=== PATIENT | female | born 1935 | race Caucasian/White ===

== ENCOUNTER 2019-07-11 21:17 | Observation (INO) ==
[2019-07-11 22:24] LABS: Basophils % 0.4 % (0.1-2.0); Eosinophils # 0.1 K/mm3 (0.0-0.4); Eosinophils % 0.6 % (0.1-12.0); Hematocrit 37.1 % (37.0-47.0); Hemoglobin 12.1 g/dL (12.2-16.2); Lymphocytes # 1.5 K/mm3 (0.7-4.5); Lymphocytes % 17.5 % (10-50); Mean Corpuscular HGB Conc 32.6 g/dL (31.8-35.4); Mean Corpuscular Volume 91.9 fl (81-99); Mean Platelet Volume 8.8 fl (7.4-10.4); Monocytes # 0.4 K/mm3 (0.1-1.0); Monocytes % 4.4 % (1.7-9.3); Neutrophils # 6.7 K/mm3 (1.8-7.8); Neutrophils % 77.1 % (37.0-80.0); Platelet Count 168 K/mm3 (142-424); Red Blood Count 4.04 M/mm3 (4.20-5.40); Red Cell Distribution Width 13.4 % (11.5-17.5); White Blood Count 8.7 K/mm3 (4.8-10.8)
[2019-07-11 22:33] LABS: Alanine Aminotransferase 21 U/L (12-78); Albumin Level 2.9 gm/dL (3.4-5.0); Albumin/Globulin Ratio 0.7 (1.1-1.8); Alkaline Phosphatase 98 U/L (46-116); Anion Gap 16.7 mEq/L (5-15); Aspartate Amino Transferase 18 U/L (15-37); Bilirubin,Total 0.6 mg/dL (0.2-1.0); Blood Urea Nitrogen 16 mg/dL (7-18); C-Reactive Protein 3.7 mg/dL (0.0-0.9); Calcium 8.5 mg/dL (8.5-10.1); Carbon Dioxide 24 mmol/L (21.0-32.0); Chloride 102 mmol/L (98-107); Globulin 3.9 gm/dl (1.3-3.2); Glucose 245 mg/dL (74-106); Sodium 139 mmol/L (136-145); Total Protein,Serum 6.8 gm/dL (6.4-8.2)
[2019-07-11 22:49] LABS: Erythrocyte Sedimentation Rate 97 mm/hr (0-30)
--- NOTE | 2019-07-11 23:11 | Emergency Department Note ---
ED Disposition Clinical Impression: Obesity (BMI 30.0-34.9), Cellulitis of both lower extremities UTI (urinary tract infection) Qualifiers: Urinary tract infection type: site unspecified Hematuria presence: without hematuria Qualified Code(s): N39.0 - Urinary tract infection, site not specified Knee pain, right Qualifiers: Chronicity: acute Qualified Code(s): M25.561 - Pain in right knee Disposition: Admitted as Observation Condition on Discharge: Good - Critical Care Critical Care Time: No Attestation: On 07/11/19, the high probability of a clinically significant, sudden or life threatening deterioration of the following system(s) required my full and direct attention, intervention and personal management. The time I documented below is in addition to time spent performing reported procedures but includes the following listed in this critical care notation. Medical Decision Making - Medical Records Medical records reviewed: Yes: I reviewed the patient's medical records. - [place] Inquiry Pt receiving controlled substance: No Vital Signs: 07/11/19 21:44 Temperature 97.7 F Temperature Source Oral Pulse Rate [Left Radial] 78 Respiratory Rate 14 Blood Pressure [Right Arm] 137/67 Blood Pressure Mean [Right Arm] 90 Blood Pressure Source [Right Arm] Automatic Cuff Blood Pressure Position [Right Arm] Sitting 02 Sat by Pulse Oximetry 95 Oxygen Delivery Method Room Air - Lab Data Lab results reviewed: Yes: I reviewed the patient's lab results. Lab Results 07/11/19 21:45: WBC 8.7, RBC 4.04 L, Hgb 12.1 L, Hct 37.1, MCV 91.9, MCH 30.0, MCHC 32.6, RDW 13.4, Plt Count 168, MPV 8.8, Neut % (Auto) 77.1, Lymph % (Auto) 17.5, [place] % (Auto) 4.4, Eos % (Auto) 0.6, Baso % (Auto) 0.4, Neut # (Auto) 6.7, Lymph # (Auto) 1.5, [place] # (Auto) 0.4, Eos # (Auto) 0.1, Baso # (Auto) 0.0, ESR 97 H 07/11/19 21:45: Sodium 139, Potassium 3.7, Chloride 102, Carbon Dioxide 24, Anion Gap 16.7 H, BUN 16, Creatinine 1.28 H, Estimated Creat Clear 42, Estimated GFR 40 L, Est GFR ( Amer) 48 L, Glucose 245 H, Calcium 8.5, Total Bilirubin 0.6, AST 18, ALT 21, Alkaline Phosphatase 98, Troponin I < 0.02, C-Reactive Protein 3.7 H, Total Protein 6.8, Albumin 2.9 L, Globulin 3.9 H, Albumin/Globulin Ratio 0.7 L 07/11/19 23:15: Lactate 2.7 H 07/12/19 00:22: Urine Color Yellow, Urine Appearance Cloudy, Urine pH 5.5, Ur Specific [place] 1.020, Urine Protein Negative, Urine Glucose (UA) 1+, Urine Ketones Negative, Urine Blood Negative, Urine Nitrate Positive, Urine Bilirubin Negative, Urine Urobilinogen 0.2, Ur Leukocyte Esterase 2+ A Result diagrams: 07/11/19 21:45 07/11/19 21:45 Orders (Tests/Meds): ED MEDICATIONS Generic Name Dose Route Start Last Admin Trade Name Freq PRN Reason Stop Dose Admin Ertapenem 1 gm/ Sodium 50 mls @ 100 mls/hr 07/12/19 01:15 07/12/19 01:11 Chloride IV 07/26/19 01:14 100 mls/hr Q24H TUAN Administration Protocol ORDERS Category Date Time Status XR chest AP Stat Exams 07/11/19 21:57 Taken Troponin I Q3H Lab 07/12/19 00:35 Received Troponin I Q3H Lab 07/12/19 04:00 Ordered Urinalysis and Microscopic Stat Lab 07/12/19 00:22 Results Blood Culture Stat Micro 07/11/19 23:15 Received Urine Culture Stat Micro 07/12/19 00:22 Received - Radiology Data #1 Image(s): Chest Image Reviewed: Yes I reviewed the patient's radiology image Preliminary Findings: Normal/NAD Weakness HPI - General Chief complaint: Weakness Stated complaint: R Knee Pain,weakness Time Seen by Provider: 07/11/19 23:09 Mode of Arrival: Wheelchair Source of Information: Patient, Parent(s), Medical Record Limitations: Physical Limitations Description of Symptoms (Recalled from ER Triage Doc. by RN): pt stated she has felt generalized weakness all day today and has felt "weak in the knees" like they might give out. pt also complains of increased nausea and acid reflux today. pt denies vomiting/diarrhea. - History of Present Illness HPI Narrative: pt with weakness and dec ability to ambulate sec to weakness and rt knee - pt with nausea but no chest pain MD Complaint: generalized weakness Onset (ago): day(s) Location: generalized Migration: none Severity: moderate Associated symptoms: denies other symptoms - Related Data Home Medications Medication Instructions Recorded Confirmed Aspirin [Aspir 81] 81 mg PO POSTTR 07/12/19 07/12/19 Metformin HCl [Metformin HCl ER] 500 mg PO DAILY 07/12/19 07/12/19 Metoprolol/Hydrochlorothiazide 1 tab PO DAILY 07/12/19 07/12/19 [Metoprolol-Hctz 100-25 mg Tab] Raloxifene HCl 60 mg PO DAILY 07/12/19 07/12/19 Ramipril [Altace 2.5mg capsule] 2.5 mg PO DAILY 07/12/19 07/12/19 Saxagliptin HCl [Onglyza] 5 mg PO DAILY 07/12/19 07/12/19 Allergies Allergy/AdvReac Type Severity Reaction Status Date / Time No Known Drug Intolerances Allergy Unknown NA Verified 07/12/19 01:11 [facility] History - Hepatitis A Screen Drug use history?: No High risk sexual behaviors?: No History of sexually transmitted infection?: No Currently employed?: No Childcare worker?: No Do you have indoor plumbing?: Yes Do you have electricity?: Yes Attestation statement:: This patient has been screened for Hepatitis A risk factors. I have reviewed the patient's past medical history: Yes Medical History: Reports:: Diabetes Mellitus Type 2 - Social History Alcohol Intake: never Occupational Status: disabled ROS Obtained: Yes All systems reviewed & no additional complaints - Constitutional Constitutional: Reports as per HPI, Denies fever(s), Reports weakness - Eyes Eyes: Denies change in vision - ENT Ears, Nose, Mouth, and Throat: Denies sore throat - Cardiovascular Cardiovascular: Denies chest pain, Denies dyspnea - Respiratory Respiratory: No cough - Gastrointestinal Gastrointestingal: Denies: abdominal pain, vomiting - Genitourinary Female Genitourinary: Denies hematuria - Musculoskeletal Musculoskeletal: Reports as per HPI, Reports joint pain, Reports joint swelling - Integumentary/Breasts Skin/Breast: Denies rash - Neurologic Neurologic: Denies headache(s), Denies seizure-like activity Physical Exam - General General appearance: alert, obese - Head Head exam: normocephalic - Eye Eye exam: Present: PERRL, EOMI. Absent: scleral icterus - ENT ENT exam: Present: mucous membranes dry - Neck Neck exam: Present: trachea midline - Respiratory Respiratory exam: Present: normal lung sounds bilaterally. Absent: respiratory distress - Cardiovascular Cardiovascular exam: Present: regular rate, systolic murmur, +S4 - Abdominal Exam Abdominal exam: Present: soft - Extremities Exam Extremities exam: Present: joint swelling - Expanded Lower Extremity Exam Right Knee exam: Present: tenderness, swelling. Absent: full ROM, erythema - Neurological Exam Neurological exam: Present: alert, CN II-XII intact. Absent: motor sensory deficit - Psychiatric Psychiatric exam: Present: normal affect - Skin Skin exam: Present: other (lower ext cellulitis bilat )
[2019-07-12 00:45] LABS: Microscopic, Urine URINE MICROSCOPIC (MICROSCOPIC)
[2019-07-12 00:53] LABS: Appearance,Urine CLOUDY (Clear); Bilirubin,Urine Negative (Negative); Blood, Urine Negative (Negative); Color,Urine YELLOW (Yellow); Glucose,Urine (UA) 1+ (Negative); Ketones,Urine Negative (Negative); Leukocyte Esterase,Urine 2+ (Negative); PH,Urine 5.5 (5.0-8.5); Protein,Urine Negative (Negative); Urobilinogen,Urine 0.2 EU/dl (0.2)
[2019-07-12 01:16] LABS: Bacteria,Urine 2+ /lpf; WBC,Urine 50-100 #/hpf (0-3)
[2019-07-12 03:46] LABS: Basophils % 0.4 % (0.1-2.0); Eosinophils # 0.2 K/mm3 (0.0-0.4); Eosinophils % 3.5 % (0.1-12.0); Hematocrit 33.7 % (37.0-47.0); Hemoglobin 11.1 g/dL (12.2-16.2); Lymphocytes # 1.9 K/mm3 (0.7-4.5); Lymphocytes % 29.8 % (10-50); Mean Corpuscular HGB Conc 32.8 g/dL (31.8-35.4); Mean Platelet Volume 9.2 fl (7.4-10.4); Monocytes # 0.4 K/mm3 (0.1-1.0); Monocytes % 5.8 % (1.7-9.3); Neutrophils # 3.9 K/mm3 (1.8-7.8); Neutrophils % 60.5 % (37.0-80.0); Platelet Count 151 K/mm3 (142-424); Red Cell Distribution Width 13.5 % (11.5-17.5); White Blood Count 6.4 K/mm3 (4.8-10.8)
[2019-07-12 04:01] LABS: Anion Gap 15.2 mEq/L (5-15); Blood Urea Nitrogen 14 mg/dL (7-18); Calcium 8.1 mg/dL (8.5-10.1); Carbon Dioxide 23 mmol/L (21.0-32.0); Chloride 106 mmol/L (98-107); Sodium 141 mmol/L (136-145)
[2019-07-12 04:04] LABS: Glucose 143 mg/dL (74-106)
--- NOTE | 2019-07-12 07:30 | Pharmacy Consult Notes ---
[facility] Pharmacy VTE Monitoring - Patient Demographics Admission date: 07/11/19 Report Date: 07/12/19 Time: 07:29 Allergies/Adverse Reactions: Patient Allergies No Known Drug Intolerances Allergy (Unknown, Verified 07/12/19 01:11) NA Height: 1.63 m Weight: 85.02 kg Patient Problems: Current Active Problems UTI (urinary tract infection) (Acute) Obesity (BMI 30.0-34.9) (Acute) Knee pain, right (Acute) Cellulitis of both lower extremities (Acute) - VTE Risk Labs: VTE Related Lab Results Hgb 11.1 g/dL (12.2-16.2) L 07/12/19 03:35 Hct 33.7 % (37.0-47.0) L 07/12/19 03:35 Plt Count 151 K/mm3 (142-424) 07/12/19 03:35 BUN 14 mg/dL (7-18) 07/12/19 03:35 Creatinine 1.09 mg/dL (0.55-1.02) H 07/12/19 03:35 Estimated Creat Clear 50 mL/min (50-200) 07/12/19 03:35 VTE Score: 3 VTE Risk Level: Low Risk - Prophylaxis VTE Prophylaxis Ordered?: Yes Types of VTE Prophylaxis: TEDS Knee High Location of Applied Device: Bilateral Lower Extremeties - VTE Diagnosis Confirmed Treatment or plan recommended: Continue Current Treatment
--- NOTE | 2019-07-12 09:35 | History & Physical Report ---
*Admission Date: 07/11/19 *Chief complaint: weakness *History of present illness: this wf presented with family to [facility] ed with hx of progressive weakness over the last 2-3 days which affected her adl and iadl- she normally has no diff with ambulation but now too weak and also reports dec po intake with no fever and no vomiting or diarrhea- no chest pain or sob - she does have atraumatic rt knee pain which has dec rom and wt bearing - no hx of gout - pt was noted to have uti in ed and admitted for ivf and abx - has hx of recurrent uti [facility] History I have reviewed the patient's past medical history: Yes Medical History: Reports:: Cancer (UTERINE), Diabetes Mellitus Type 2 *Have you ever received a pneumonia vaccine?: No *Have you received a flu vaccine this season?: No Other Surgeries: Yes: Appendectomy, Hysterectomy-Total - *Social History Educational Level: Completed High School Alcohol Intake: never *Occupational Status:: disabled *Travel in the last 8 weeks: None Family Hx:: Coronary Artery Disease, Diabetes, Heart Attack, Hyperlipidemia, Hypertension, Stroke, Alcoholism, Mental illness Review of Systems - Review of Systems Review of systems:: pertinent systems reviewed and negative unless documented below - Constitutional Reports fatigue, Reports weakness - Eyes Denies change in vision - ENT Denies change in voice, Denies sore throat - *Cardiovascular Denies chest pain at rest, Denies shortness of breath - *Respiratory Denies cough - *Gastrointestinal Denies abdominal pain, Denies vomiting - *Genitourinary Denies pelvic pain - *Musculoskeletal Reports abnormal walking, Reports joint pain, Reports joint swelling, Reports limited joint movement, Denies neck pain - Integumentary/Breasts Denies rash - *Neurologic Reports weakness, Denies dizziness, Denies headache(s), Denies seizure-like activity - Psychiatric Denies anxiety Meds Home Medications Medication Instructions Recorded Confirmed Type Aspirin [Aspir 81] 81 mg PO DAILY 07/12/19 07/12/19 History Cholecalciferol (Vitamin D3) [D3 2,000 unit PO DAILY 07/12/19 07/12/19 History Dots] Metformin HCl [Metformin HCl ER] 500 mg PO BID 07/12/19 07/12/19 History Metoprolol/Hydrochlorothiazide 1 tab PO DAILY 07/12/19 07/12/19 History [Metoprolol-Hctz 100-25 mg Tab] Raloxifene HCl 60 mg PO DAILY 07/12/19 07/12/19 History Ramipril [Altace 2.5mg capsule] 2.5 mg PO DAILY 07/12/19 07/12/19 History Saxagliptin HCl [Onglyza] 5 mg PO DAILY 07/12/19 07/12/19 History Allergies Allergy/AdvReac Type Severity Reaction Status Date / Time No Known Drug Intolerances Allergy Unknown NA Verified 07/12/19 01:11 Exam Vital signs and Labs for Last 24 Hours: Temp Pulse Resp BP Pulse Ox 98.0 F 63 18 128/67 93 L 07/12/19 08:00 07/12/19 08:00 07/12/19 08:00 07/12/19 08:00 07/12/19 08:00 Laboratory Results - last 24 hr 07/11/19 21:45: WBC 8.7, RBC 4.04 L, Hgb 12.1 L, Hct 37.1, MCV 91.9, MCH 30.0, MCHC 32.6, RDW 13.4, Plt Count 168, MPV 8.8, Neut % (Auto) 77.1, Lymph % (Auto) 17.5, [place] % (Auto) 4.4, Eos % (Auto) 0.6, Baso % (Auto) 0.4, Neut # (Auto) 6.7, Lymph # (Auto) 1.5, [place] # (Auto) 0.4, Eos # (Auto) 0.1, Baso # (Auto) 0.0, ESR 97 H 07/11/19 21:45: Sodium 139, Potassium 3.7, Chloride 102, Carbon Dioxide 24, Anion Gap 16.7 H, BUN 16, Creatinine 1.28 H, Estimated Creat Clear 42, Estimated GFR 40 L, Est GFR ( Amer) 48 L, Glucose 245 H, Calcium 8.5, Total Bilirubin 0.6, AST 18, ALT 21, Alkaline Phosphatase 98, Troponin I < 0.02, C- Reactive Protein 3.7 H, Total Protein 6.8, Albumin 2.9 L, Globulin 3.9 H, Albumin/Globulin Ratio 0.7 L 07/11/19 23:15: Lactate 2.7 H 07/12/19 00:22: Urine Color Yellow, Urine Appearance Cloudy, Urine pH 5.5, Ur Specific [place] 1.020, Urine Protein Negative, Urine Glucose (UA) 1+, Urine Ketones Negative, Urine Blood Negative, Urine Nitrate Positive, Urine Bilirubin Negative, Urine Urobilinogen 0.2, Ur Leukocyte Esterase 2+ A, Urine WBC 50-100, Urine Bacteria 2+ 07/12/19 00:35: Troponin I < 0.02 07/12/19 03:35: Sodium 141, Potassium 3.2 L, Chloride 106, Carbon Dioxide 23, Anion Gap 15.2 H, BUN 14, Creatinine 1.09 H, Estimated Creat Clear 50, Estimated GFR 48 L, Est GFR ( Amer) 58 L D, Glucose 143 H D, Calcium 8.1 L, Magnesium 1.5, Troponin I < 0.02 07/12/19 03:35: WBC 6.4 D, RBC 3.70 L, Hgb 11.1 L, Hct 33.7 L, MCV 91.0, MCH 29.8, MCHC 32.8, RDW 13.5, Plt Count 151, MPV 9.2, Neut % (Auto) 60.5, Lymph % (Auto) 29.8, [place] % (Auto) 5.8, Eos % (Auto) 3.5, Baso % (Auto) 0.4, Neut # (Auto) 3.9, Lymph # (Auto) 1.9, [place] # (Auto) 0.4, Eos # (Auto) 0.2, Baso # (Auto) 0.0 07/12/19 03:35: Lactate 1.5 07/12/19 05:38: POC Glucose 143 H I & O for Last 24 hours: Intake & Output 07/09/19 07/10/19 07/11/19 07/12/19 11:59 11:59 11:59 11:59 Intake Total 759 / 759 Balance 759 / 759 Weight 187 lb 7 oz - Constitutional no acute distress, obese - *Routine HEENT Exam Head: Present: normocephalic Eye: Present: EOMI, PERRL ENT: Present: mucous membranes dry - *Routine Neck Exam Present: supple - *Routine Respiratory Exam Present: CTA bilaterally - *Routine Cardiovascular Exam Present: RRR, murmur - *Routine Abdominal Exam Present: soft - *Routine Extremities Exam Comments: rt knee swollen with inc warmth - no def effusion - *Routine Skin Exam Present: intact - *Routine Neurological Exam Present: alert, oriented X3, CN II-XII intact - Routine Psychiatric Exam Present: normal affect Assessment and Plan (1) UTI (urinary tract infection) Current visit: Yes Status: Acute Qualifiers: Urinary tract infection type: site unspecified Hematuria presence: without hematuria Qualified Code(s): N39.0 - Urinary tract infection, site not specified Category: Medical Code(s): N39.0 - Urinary tract infection, site not specified (2) Obesity (BMI 30.0-34.9) Current visit: Yes Status: Acute Category: Medical Code(s): E66.9 - Obesity, unspecified (3) Knee pain, right Current visit: Yes Status: Acute Qualifiers: Chronicity: acute Qualified Code(s): M25.561 - Pain in right knee Category: Medical Code(s): M25.561 - Pain in right knee (4) Cellulitis of both lower extremities Current visit: Yes Status: Acute Category: Medical Code(s): L03.115 - Cellulitis of right lower limb; L03.116 - Cellulitis of left lower limb (5) Osteoarthritis of right knee Current visit: Yes Status: Acute Category: Medical Code(s): M17.11 - Unilateral primary osteoarthritis, right knee (6) Diabetes Current visit: Yes Status: Acute Qualifiers: Diabetes mellitus type: type 2 Diabetes mellitus exterminator helper termite insulin use: unspecified longterm insulin use status Diabetes mellitus complication status: without complication Qualified Code(s): E11.9 - Type 2 diabetes mellitus without complications Category: Medical Code(s): E11.9 - Type 2 diabetes mellitus without complications
--- NOTE | 2019-07-12 17:28 | Consult Report ---
*Admission Date: 07/11/19 *Reason for consult:: Bilateral knee pain *History of present illness: this wf presented with family to [facility] ed with hx of progressive weakness over the last 2-3 days which affected her adl and iadl- she normally has no diff with ambulation but now too weak and also reports dec po intake with no fever and no vomiting or diarrhea- no chest pain or sob - she does have atraumatic rt knee pain which has dec rom and wt bearing - no hx of gout - pt was noted to have uti in ed and admitted for ivf and abx - has hx of recurrent uti Review of Systems - Review of Systems Review of systems:: pertinent systems reviewed and negative unless documented below - *Neurologic Reports abnormal walking, Reports weakness, Denies dizziness, Denies headache(s), Denies seizure-like activity [facility] History I have reviewed the patient's past medical history: Yes Medical History: Reports:: Cancer (UTERINE), Diabetes Mellitus Type 2 *Have you ever received a pneumonia vaccine?: No *Have you received a flu vaccine this season?: No Other Surgeries: Yes: Appendectomy, Hysterectomy-Total - *Social History Educational Level: Completed High School Alcohol Intake: never *Occupational Status:: disabled *Travel in the last 8 weeks: None Family Hx:: Coronary Artery Disease, Diabetes, Heart Attack, Hyperlipidemia, Hypertension, Stroke, Alcoholism, Mental illness Meds Home Medications Medication Instructions Recorded Confirmed Type Aspirin [Aspir 81] 81 mg PO DAILY 07/12/19 07/12/19 History Cholecalciferol (Vitamin D3) [D3 2,000 unit PO DAILY 07/12/19 07/12/19 History Dots] Metformin HCl [Metformin HCl ER] 500 mg PO BID 07/12/19 07/12/19 History Metoprolol/Hydrochlorothiazide 1 tab PO DAILY 07/12/19 07/12/19 History [Metoprolol-Hctz 100-25 mg Tab] Raloxifene HCl 60 mg PO DAILY 07/12/19 07/12/19 History Ramipril [Altace 2.5mg capsule] 2.5 mg PO DAILY 07/12/19 07/12/19 History Saxagliptin HCl [Onglyza] 5 mg PO DAILY 07/12/19 07/12/19 History Allergies Allergy/AdvReac Type Severity Reaction Status Date / Time No Known Drug Intolerances Allergy Unknown NA Verified 07/12/19 01:11 Exam Vital signs and Labs for Last 24 Hours: Temp Pulse Resp BP Pulse Ox 98.0 F 56 L 18 134/66 97 07/12/19 12:00 07/12/19 12:00 07/12/19 12:00 07/12/19 12:00 07/12/19 12:00 Laboratory Results - last 24 hr 07/11/19 21:45: WBC 8.7, RBC 4.04 L, Hgb 12.1 L, Hct 37.1, MCV 91.9, MCH 30.0, MCHC 32.6, RDW 13.4, Plt Count 168, MPV 8.8, Neut % (Auto) 77.1, Lymph % (Auto) 17.5, Dent % (Auto) 4.4, Eos % (Auto) 0.6, Baso % (Auto) 0.4, Neut # (Auto) 6.7, Lymph # (Auto) 1.5, Dent # (Auto) 0.4, Eos # (Auto) 0.1, Baso # (Auto) 0.0, ESR 97 H 07/11/19 21:45: Sodium 139, Potassium 3.7, Chloride 102, Carbon Dioxide 24, Anion Gap 16.7 H, BUN 16, Creatinine 1.28 H, Estimated Creat Clear 42, Estimated GFR 40 L, Est GFR ( Amer) 48 L, Glucose 245 H, Calcium 8.5, Total Bilirubin 0.6, AST 18, ALT 21, Alkaline Phosphatase 98, Troponin I < 0.02, C- Reactive Protein 3.7 H, Total Protein 6.8, Albumin 2.9 L, Globulin 3.9 H, Albumin/Globulin Ratio 0.7 L 07/11/19 23:15: Lactate 2.7 H 07/12/19 00:22: Urine Color Yellow, Urine Appearance Cloudy, Urine pH 5.5, Ur Specific Gantt 1.020, Urine Protein Negative, Urine Glucose (UA) 1+, Urine Ketones Negative, Urine Blood Negative, Urine Nitrate Positive, Urine Bilirubin Negative, Urine Urobilinogen 0.2, Ur Leukocyte Esterase 2+ A, Urine WBC 50-100, Urine Bacteria 2+ 07/12/19 00:35: Troponin I < 0.02 07/12/19 03:35: Sodium 141, Potassium 3.2 L, Chloride 106, Carbon Dioxide 23, Anion Gap 15.2 H, BUN 14, Creatinine 1.09 H, Estimated Creat Clear 50, Estimated GFR 48 L, Est GFR ( Amer) 58 L D, Glucose 143 H D, Calcium 8.1 L, Magnesium 1.5, Troponin I < 0.02 07/12/19 03:35: WBC 6.4 D, RBC 3.70 L, Hgb 11.1 L, Hct 33.7 L, MCV 91.0, MCH 29.8, MCHC 32.8, RDW 13.5, Plt Count 151, MPV 9.2, Neut % (Auto) 60.5, Lymph % (Auto) 29.8, Dent % (Auto) 5.8, Eos % (Auto) 3.5, Baso % (Auto) 0.4, Neut # (Auto) 3.9, Lymph # (Auto) 1.9, Dent # (Auto) 0.4, Eos # (Auto) 0.2, Baso # (Auto) 0.0 07/12/19 03:35: Lactate 1.5 07/12/19 05:38: POC Glucose 143 H 07/12/19 11:24: POC Glucose 143 H I & O for Last 24 hours: Intake & Output 07/10/19 07/11/19 07/12/19 07/13/19 11:59 11:59 11:59 11:59 Intake Total 759 / 759 480 / 480 Balance 759 / 759 480 / 480 Weight 187 lb 7 oz 187 lb 6.992 oz - *Routine Extremities Exam Comments: On examination of lower extremities, the limb lengths are equal; there is valgus deformity of the right knee and the left knee alignment is neutral. On examination of the left knee, the skin is intact and normal. There is no erythema, ecchymosis or induration. There is 1+ knee effusion; patient has tenderness over all 3 compartments with more severe tenderness over the medial compartment. Knee range of movements is 5- 90 of flexion. Terminal flexion is painful. Knee joint is ligamentously stable. Quadriceps and hamstring weakness demonstrated with flexion and extension of the knee joint; she is just about able to straight leg raise actively. Thigh and calf are soft and nontender. Di stal neurovascular status is intact. Dorsalis pedis and posterior tibial pulses are 1+ bilaterally. Sensation is intact to light touch throughout. On examination of the right knee, the skin is intact and normal. There is valgus deformity of the right knee; there is no erythema, ecchymosis or eric ration. There is 1+ knee effusion; patient has tenderness over all 3 compartments with more severe tenderness over the lateral compartment. Knee range of movements is 5-80 of flexion. Terminal flexion is painful. Knee joint is ligamentously stable. She has quadriceps and hamstring weakness and has very weak straight leg raise. Thigh and calf are soft and nontender. Distal neurovascular status is intact. Dorsalis pedis and posterior tibial pulses are 1+ bilaterally. Sensation is intact to light touch throughout. Examination of both hip joints demonstrates good range of pain-free movements. Diagnostic imaging: X-rays of both knee joints performed at [facility] reviewed along with radiologist report. Severe degenerative arthritis noted bilaterally. No acute changes like fracture, dislocation or subluxation are evident. Results - Labs Result Diagrams: 07/12/19 03:35 07/12/19 03:35 Labs: Abnormal lab results 07/11/19 07/11/19 07/11/19 Range/Units 21:45 21:45 23:15 RBC 4.04 L (4.20-5.40) M/mm3 Hgb 12.1 L (12.2-16.2) g/dL Hct (37.0-47.0) % ESR 97 H (0-30) mm/hr Potassium (3.5-5.1) mmoL/L Anion Gap 16.7 H (5-15) mEq/L Creatinine 1.28 H (0.55-1.02) mg/dL Estimated GFR 40 L (>60) ml/min Est GFR ( Amer) 48 L (>60) ML/MIN Glucose 245 H (74-106) mg/dL POC Glucose (70-110) Lactate 2.7 H (0.4-2.0) mmol/L Calcium (8.5-10.1) mg/dL C-Reactive Protein 3.7 H (0.0-0.9) mg/dL Albumin 2.9 L (3.4-5.0) gm/dL Globulin 3.9 H (1.3-3.2) gm/dl Albumin/Globulin Ratio 0.7 L (1.1-1.8) Ur Leukocyte Esterase (Negative) 07/12/19 07/12/19 07/12/19 Range/Units 00:22 03:35 03:35 RBC 3.70 L (4.20-5.40) M/mm3 Hgb 11.1 L (12.2-16.2) g/dL Hct 33.7 L (37.0-47.0) % ESR (0-30) mm/hr Potassium 3.2 L (3.5-5.1) mmoL/L Anion Gap 15.2 H (5-15) mEq/L Creatinine 1.09 H (0.55-1.02) mg/dL Estimated GFR 48 L (>60) ml/min Est GFR ( Amer) 58 L D (>60) ML/MIN Glucose 143 H D (74-106) mg/dL POC Glucose (70-110) Lactate (0.4-2.0) mmol/L Calcium 8.1 L (8.5-10.1) mg/dL C-Reactive Protein (0.0-0.9) mg/dL Albumin (3.4-5.0) gm/dL Globulin (1.3-3.2) gm/dl Albumin/Globulin Ratio (1.1-1.8) Ur Leukocyte Esterase 2+ A (Negative) 07/12/19 07/12/19 Range/Units 05:38 11:24 RBC (4.20-5.40) M/mm3 Hgb (12.2-16.2) g/dL Hct (37.0-47.0) % ESR (0-30) mm/hr Potassium (3.5-5.1) mmoL/L Anion Gap (5-15) mEq/L Creatinine (0.55-1.02) mg/dL Estimated GFR (>60) ml/min Est GFR ( Amer) (>60) ML/MIN Glucose (74-106) mg/dL POC Glucose 143 H 143 H (70-110) Lactate (0.4-2.0) mmol/L Calcium (8.5-10.1) mg/dL C-Reactive Protein (0.0-0.9) mg/dL Albumin (3.4-5.0) gm/dL Globulin (1.3-3.2) gm/dl Albumin/Globulin Ratio (1.1-1.8) Ur Leukocyte Esterase (Negative) H & H 07/11/19 07/12/19 Range/Units 21:45 03:35 Hgb 12.1 L 11.1 L (12.2-16.2) g/dL Hct 37.1 33.7 L (37.0-47.0) % All other labs normal. Assessment and Plan (1) Osteoarthritis of right knee Current visit: Yes Status: Acute Category: Medical Code(s): M17.11 - Unilateral primary osteoarthritis, right knee (2) Osteoarthritis of left knee Current visit: Yes Status: Acute Category: Medical Code(s): M17.12 - Unilateral primary osteoarthritis, left knee - Assessment and plan all Dx Assessment and Plan for all problems:: I have reviewed the clinical and imaging findings with the patient and her daughter. I have discussed the diagnosis, natural history and management options in detail including both nonsurgical and surgical. Following a detailed discussion the patient opted for conservative management including rest, activity modification, ice or heat as appropriate, weight loss, dietary supplements like glucosamine and chondroitin sulfate, use of a cane or other walking aids as appropriate, NSAIDs, knee range of motion and quadriceps strengthening exercises, physical therapy and local modalities treatment. We also discussed the role of intra-articular injections including both steroids and Visco supplementation injections. Patient had intra-articular steroid injections to both knee joints about 3 weeks ago at [facility]. So I would not recommend repeat injections for at least couple of months. We also discussed the role of surgery which in her case would be a total knee arthroplasty. However, she is not keen on surgical intervention and she may not even be a suitable candidate for major surgery like knee replacement. All their questions were answered and they verbalized a good understanding. If patient wants to be followed up further in my office she can call and make an appointment as needed. Thank you for the opportunity to participate in the care of this pleasant samuel ent.
--- NOTE | 2019-07-13 08:27 | Discharge Summary ---
General - General Admission date:: 07/12/19 Discharge date: 07/13/19 HPI HPI: this wf presented with family to [facility] ed with hx of progressive weakness over the last 2-3 days which affected her adl and iadl- she normally has no diff with ambulation but now too weak and also reports dec po intake with no fever and no vomiting or diarrhea- no chest pain or sob - she does have atraumatic rt knee pain which has dec rom and wt bearing - no hx of gout - pt was noted to have uti in ed and admitted for ivf and abx - has hx of recurrent uti Hospital Course Hospital Course: this wf presented with family to [facility] ed with hx of progressive weakness over the last 2-3 days which affected her adl and iadl- she normally has no diff with ambulation but now too weak and also reports dec po intake with no fever and no vomiting or diarrhea- no chest pain or sob - she does have atraumatic rt knee pain which has dec rom and wt bearing - no hx of gout - pt was noted to have uti in ed and admitted for ivf and abx - has hx of recurrent uti (Per Dr. Wallace) Orhto seen and Rec: I have reviewed the clinical and imaging findings with the patient and her daughter. I have discussed the diagnosis, natural history and management options in detail including both nonsurgical and surgical. Following a detailed discussion the patient opted for conservative management including rest, activity modification, ice or heat as appropriate, weight loss, dietary supplements like glucosamine and chondroitin sulfate, use of a cane or other walking aids as appropriate, NSAIDs, knee range of motion and quadriceps strengthening exercises, physical therapy and local modalities treatment. We also discussed the role of intra-articular injections including both steroids and Visco supplementation injections. Patient had intra-articular steroid injections to both knee joints about 3 weeks ago at [facility]. So I would not recommend repeat injections for at least couple of months. We also discussed the role of surgery which in her case would be a total knee arthroplasty. However, she is not keen on surgical intervention and she may not even be a suitable candidate for major surgery like knee replacement. All their questions were answered and they verbalized a good understanding. If patient wants to be followed up further in my office she can call and make an appointment as needed. Thank you for the opportunity to participate in the care of this pleasant patient (Per Dr. Yeung). 83-year-old female patient was admitted with UTI in the ED. Urine culture and blood cultures x2 have been negative. Will discharge home today, discussed discharge with patient she is agreeable to this. She will follow-up with her primary care Dr. Barragan in 1 week and have another urinalysis collected. PT OT will see today and she will follow-up with her outside Ortho as needed. Objective Vital signs: Temp Pulse Resp BP Pulse Ox 97.0 F L 61 18 181/82 H 96 07/13/19 08:00 07/13/19 08:00 07/13/19 08:00 07/13/19 08:00 07/13/19 08:00 no acute distress - *Routine HEENT Exam Head: Present: normocephalic. Absent: tenderness of temporal artery Eye: Present: EOMI, PERRL, normal accommodation. Absent: conjunctival icterus, periorbital tenderness ENT: Present: mucous membranes moist. Absent: sinus tenderness - *Routine Neck Exam Present: full ROM, JVD, trachea midline. Absent: tenderness, tracheal deviation - *Routine Cardiovascular Exam Present: RRR, murmur - *Routine Abdominal Exam Present: soft, normoactive bowel sounds. Absent: tenderness, firm - *Routine Extremities Exam Present: full ROM, pulses intact. Absent: calf tenderness - Routine Back/Spine/Pelvis Exam Back/Spine: Present: full ROM. Absent: CVA tenderness - *Routine Skin Exam Present: intact. Absent: cyanosis, erythema - *Routine Neurological Exam Present: alert, oriented X3, CN II-XII intact. Absent: motor deficit - Routine Psychiatric Exam Present: normal affect. Absent: homicidal ideation, auditory hallucinations Results Labs on day of discharge: Labs from last 24 hours 07/13/19 07/12/19 07/12/19 05:58 21:06 17:00 POC Glucose 140 H 171 H 162 H 07/12/19 11:24 POC Glucose 143 H Preliminary micro results at discharge 07/12/19 00:22 Urine Culture - Preliminary Urine,Catheterized NO GROWTH AFTER 24 HOURS - Additional Comments Rounded with Dr. Wallace, all orders per Dr. Wallace 1. We will discharge home today 2. We will follow-up with PCP in 1 week with urinalysis collected 3. We will follow-up with outside Ortho as needed 4. PT/OT to eval DS: Diagnosis - Discharge Diagnosis (1) UTI (urinary tract infection) Status: Acute (2) Obesity (BMI 30.0-34.9) Status: Acute (3) Knee pain, right Status: Acute (4) Cellulitis of both lower extremities Status: Acute (5) Osteoarthritis of right knee Status: Acute (6) Diabetes Status: Acute Discharge Plan - Patient Discharge Instructions Patient Instructions: DI for Cellulitis -- Adult, Urinary Tract Infection, Cellulitis, DI for Obesity -- Adult, DI for Urinary Tract Infection (UTI), DI for Knee Pain - Follow up Plan Unknown provider or service follow up:: 07/13/19 08:37 Dr. Barragan Disposition: Home, Self-Assisted Medications: Home Medications Medication Instructions Recorded Confirmed Type Aspirin [Aspir 81] 81 mg PO DAILY 07/12/19 07/12/19 History Cholecalciferol (Vitamin D3) [D3 2,000 unit PO DAILY 07/12/19 07/12/19 History Dots] Metformin HCl [Metformin HCl ER] 500 mg PO BID 07/12/19 07/12/19 History Metoprolol/Hydrochlorothiazide 1 tab PO DAILY 07/12/19 07/12/19 History [Metoprolol-Hctz 100-25 mg Tab] Raloxifene HCl 60 mg PO DAILY 07/12/19 07/12/19 History Ramipril [Altace 2.5mg capsule] 2.5 mg PO DAILY 07/12/19 07/12/19 History Saxagliptin HCl [Onglyza] 5 mg PO DAILY 07/12/19 07/12/19 History Prescriptions/Medication Reconciliation: Continued Ramipril [Altace 2.5mg capsule] 2.5 mg PO DAILY Raloxifene HCl 60 mg PO DAILY Metoprolol/Hydrochlorothiazide [Metoprolol-Hctz 100-25 mg Tab] 1 tab PO DAILY Metformin HCl [Metformin HCl ER] 500 mg PO BID Aspirin [Aspir 81] 81 mg PO DAILY Cholecalciferol (Vitamin D3) [D3 Dots] 2,000 unit PO DAILY Saxagliptin HCl [Onglyza] 5 mg PO DAILY - Problem Reconciliation Problems Reviewed?: Yes
--- OUTSIDE RECORDS SUMMARY | 2019-07-13 15:22 | External Medical Summary | Continuity of Care Document ---
:1935 Author Organization [facility] Address [address] [place] [phone] Phone Care Team Providers Name Role Phone Short Primary Care Provider Roberta Wallace Attending Provider Allergies, Adverse Reactions, Alerts Allergen Type Severity Reaction Last Verified Status Updated No Known Drug Allergy Unknown NA Yes Active Intolerances Medications Medication Status Dose Units Route Sig Qty Days Start End Instruct ions Date Date Aspirin Active 81 MG Oral Daily July 12, 2019 1:07am Metformin Hcl Active 500 MG Oral Twice July 1:07am Metoprolol/Hydroc Active 1 TAB Oral Daily July hlorothiazide 2018 1:07am Raloxifene Hcl Active 60 MG Oral Daily July 12, 2019 1:07am Ramipril Active 2.5 MG Oral Daily July 12, 2019 1:07am Saxagliptin Hcl Active 5 MG Oral Daily July 12, 2019 1:07am Cholecalciferol Active 2000 UNIT Oral Daily July (Vitamin D3) 2018 9:08am Problems Active Problems Medical Problem Onset Date Status UTI (urinary tract infection) Active Diabetes Active Cellulitis of both lower extremities Act roseanne Obesity (BMI 30.0-34.9) Active Knee pain, right Active Osteoarthritis of left knee Active Osteoarthritis of right knee Active Procedures Procedure Date Performed Status XR chest AP July 11, 2019 completed XR knee LT 4V July 12, 2019 completed XR knee RT 4V July 12, 2019 completed ECG initial Robert July 11, 2019 completed Urine Culture July 12, 2019 active Blood Culture July 11, 2019 active Relevant Diagnostic Tests and/or Laboratory Data Laboratory Results Test Date/Time Result Interpretation Reference Result Perfo rming Range Comment Site White Blood Count July 6.4 K/mm3 4.8-10.8 Delta: 8.7 o n [facility], [address] [place] [address] 36 E 201807/11/19-2144 Abhishek [place] 50300 3:35am Red Blood Count July 3.70 4.20-5.40 [facility], [address] [place] [address] 36 E 2018 M/mm3 Mar[place] 12691 3:35am Hemoglobin July 11.1 g/dL 12.2-16.2 [facility], [address] [place] [address] 36 E 2018 [place] 84095 3:35am Hematocrit Ferdinand 33.7 % 37.0-47.0 [facility], [address] [place] [address] 36 E 2018 [place] 91792 3:35am Mean Corpuscular Ferdinand 91.0 fl 81-99 [facility], [address] [place] [address] 36 E Volume 2018 [place] [address] 3:35am Mean Corpuscular Ferdinand 29.8 pg 27.0-31.2 [facility], [address] [place] [address] 36 E Hemoglobin 2018 [place] 32409 3:35am Mean Corpuscular Ferdinand 32.8 g/dL 31.8-35.4 [facility], [address] [place] [address] 36 E Hemoglobin 2018 [place] [address] Concent 3:35am Red Cell Ferdinand 13.5 % 11.5-17.5 [facility], [address] [place] [address] 36 E Distribution 2018 [place] 87449 Width 3:35am Platelet Count July 151 K/mm3 142-424 [facility], [address] [place] [address] 36 E 2018 [place] 22914 3:35am Mean Platelet Ferdinand 9.2 fl 7.4-10.4 [facility], [address] [place] [address] 36 E Volume 2018[facility] [address] 3:35am Neutrophils (%) July 60.5 % 37.0-80.0 [facility], [address] [place] [address] 36 E (Auto) 2018[place] [address] 3:35am Lymphocytes (%) July 29.8 % 10-50 [facility], [address] [place] [address] 36 E (Auto) 2018 [place] [address] 3:35am Monocytes (%) July 5.8 % 1.7-9.3 [facility], [address] [place] [address] 36 E (Auto) 2018 [place] [address] 3:35am Eosinophils (%) July 3.5 % 0.1-12.0 [facility], [address] [place] [address] E (Auto) 2018 [place] [address] 3:35am Basophils (%) July 0.4 % 0.1-2.0 [facility], [address] [place] [address] 36 E (Auto) 2018 [place] [address] 3:35am Neutrophils # July 3.9 K/mm3 1.8-7.8 [facility], [address] [place] [address] E (Auto) 2018[place] [address] 3:35am Lymphocytes # July 1.9 K/mm3 0.7-4.5 [facility], [address] [place] [address] 36 E (Auto) 2018 [place] [address] 3:35am Monocytes # July 0.4 K/mm3 0.1-1.0 [facility], [address] [place] [address] 36 E (Auto) 2018 [place] [address] 3:35am Eosinophils # July 0.2 K/mm3 0.0-0.4 [facility], [address] [place] [address] E (Auto) 2018[place] [address] 3:35am Basophils # July 0.0 K/mm3 0-0.2 [facility], [address] [place] [address] E (Auto) 2018 [place] [address] 3:35am Erythrocyte July 97 mm/hr 0-30 [facility], [address] E Sedimentation 2018 Abhishek [place]OW[place] 93603 Rate 9:45pm Urine Color Ferdinand Yellow Yellow [facility], [address] [place] [address] 36 E 2018 [place] 27425 12:22am Urine Appearance Ferdinand Cloudy Clear [facility], [address] [place] [address] 36 E 2018 [place] 65509 12:22am Urine pH Ferdinand 5.5 5.0-8.5 [facility], [address] [place] [address] 36 E 2018 [place] 26463 12:22am Urine Specific Ferdinand 1.020 1.005-1.03 [facility], [address] [place] [address] 36 E Fontana 2018 0 [place] 75753 12:22am Urine Protein Ferdinand Negative Negative [facility], [address] [place] [address] 36 E 2018 [place] 22681 12:22am Urine Glucose Ferdinand 1+ Negative [facility], [address] [place] [address] 36 E (UA) 2018 [place] 62143 12:22am Urine Ketones Ferdinand Negative Negative [facility], [address] [place] [address] 36 E 2018 [place] 76339 12:22am Urine Blood Ferdinand Negative Negative [facility], [address] [place] [address] 36 E 2018 [place] 42899 12:22am Urine Nitrate Ferdinand Positive Negative [facility], [address] [place] [address] 36 E 2018 [place] 85839 12:22am Urine Bilirubin Ferdinand Negative Negative [facility], [address] [place] [address] 36 E 2018 [place] 48834 12:22am Urine Ferdinand 0.2 EU/dl [facility], [address] [place] [address] 36 E Urobilinogen 2018 [place] 09598 12:22am Urine Leukocyte Ferdinand 2+ Negative [facility], [address] [place] [address] 36 E Esterase 2018 [place] 83589 12:22am Urine WBC Ferdinand 50-100 [facility], [address] [place] [address] 36 E 2018 #/hpf [place] 65974 12:22am Urine Bacteria Ferdinand 2+ /lpf NONE [facility], [address] [place] [address] 36 E 2018 [place] Foley31 12:22am Troponin I July < 0.02 0.00-0.06 *ALERT* High [facility], [address] [place] [address] 36 E 2018 ng/ml levels of [place] 61720 3:35am Biotin can falsely depress Troponin results.Many dietary supplements promoted for hair,skin, and nail benefits contain biotin levels up to 650 times the recommended daily intake of biotin. In additon to dietary supplements, Biotin is occasionally prescribed for medical conditions. Sodium Level July 141 136-145 [facility], [address] [place] [address] 36 E 2018 mmol/L [place] 67324 3:35am Potassium Level July 3.2 3.5-5.1 [facility], [address] [place] [address] 36 E 2018 mmoL/L [place] 34188 3:35am Chloride Level July 106 98-107 [facility], [address] [place] [address] 36 E 2018 mmol/L [place] 97975 3:35am Carbon Dioxide July 23 mmol/L 21.0-32.0 [facility], [address] [place] [address] E Level 2018 [place] 79703 3:35am Anion Gap July 15.2 5-15 [facility], [address] [place] [address] E 2018 mEq/L [place] 38580 3:35am Blood Urea July 14 mg/dL 7-18 [place] [address] E Nitrogen 2018 [place] 41799 3:35am Creatinine July 1.09 0.55-1.02 [facility], [address] [place] [address] E 2018 mg/dL [place] 08124 3:35am Estimated Ferdinand 50 mL/min 0-300 [facility], [address] [place] [address] 36 E Creatinine 2018 [place] 44848 Clearance 3:35am Estimated GFR July 58 ML/MIN >59 Delta: 48 on [facility], [address] [place] [address] 36 E ( 201807/11/19-2144 Abhishek BOWLING 21742 Gibraltarian) 3:35am Estimat July 48 ml/min >59 [facility], [address] [place] [address] 36 E Glomerular 9th, 2019 [place] [address] Filtration Rate 3:35am Glucose Level July 143 mg/dL 74-106 Delta: 245 on [facility], [address] [place] [address] 36 E 201807/11/19-2144 Abhishek [place] 39001 3:35am Bedside Glucose July 140 70-110 [place] 2018 re (RALS) 5:58am Lactate July 1.5 0.4-2.0 [facility], [address] [place] [address] 36 E 2018 [place] 40466 3:35am Calcium Level July 8.1 mg/dL 8.5-10.1 [facility], [address] [place] [address] 36 E 2018 [place] 63757 3:35am Magnesium Level July 1.5 mg/dL 1.4-2.2 [facility], [address] [place] [address] 36 E 2018 [place] 35225 3:35am Total Bilirubin July 0.6 mg/dL 0.2-1.0 [facility], [address] [place] [address] 36 E 2018 [place] 80963 9:45pm Aspartate Amino July 18 U/L 15-37 [facility], [address] [place] [address] 36 E Transf (AST/SGOT) 2018 Sd [place] 47135 9:45pm Alanine July 21 U/L 12-78 [facility], [address] [place] [address] 36 E Aminotransferase 2018 Danna [place] 58617 (ALT/SGPT) 9:45pm C-Reactive July 3.7 mg/dL 0.0-0.9 [facility], [address] [place] [address] 36 E Protein 2018 [place] 57196 9:45pm Total Protein July 6.8 gm/dL 6.4-8.2 [facility], [address] [place] [address] 36 E 2018 [place] 52117 9:45pm Albumin July 2.9 gm/dL 3.4-5.0 [facility], [address] [place] [address] 36 E 2018 [place] 19062 9:45pm Globulin July 3.9 gm/dl 1.3-3.2 [facility], [address] [place], [place] [address]way 36 E 2018 [place] [address] 9:45pm Albumin/Globulin July 0.7 1.1-1.8 [facility], [address] Ratio 2018 [place] [address] 9:45pm Alkaline July 98 U/L 46-116 [facility], [address] Phosphatase 2018 [place] [address] 9:45pm Diagnostic Imaging Reports Report Dictated Date/Time Dictated By Status Radiology Report July 11, 2019 Bertin Ayers MD completed 10:07pm [place] [id number] [facility] [address] [place], [place] [address] XRay R eport Sig bear Patient: Elma Henry MR#: [id number] : 1935 Acct:[id number] Age/Sex: 83 / F ADM Date: Loc: Attending Dr: Fernando Wallace MD Ordering Physician: Fernando Wallace MD Date of Service: 07/11/19 Procedure(s): XR chest AP Accession Number(s): [id number] cc: Bertin Ayers MD; Mary Villanueva MD~ PROCEDURE: XR CHEST AP CLINICAL HISTORY: weakness Generalized weakness COMPARISON: CXR1 CHEST-PORTABLE from 01/16/2014 CXR1 CHEST-PORTABLE [facility] 02/20/2016 FINDINGS: The exam is limited technically due to underpenetration/patient body habitus. Normal heart size. The lungs are clear without infiltrates , suspicious nodules, or pleural effusions. No acute bony abnormalities. IMPRESSION: No change with no acute finding Dictated by: Bertin Ayers MD 07/12/2019 04:30 Electronically signed by Bertin Ayers in [place] 07/12/2019 04:30 Radiology Report July 12, 2019 Bertin Ayers MD completed 10:19am [place] [address] [facility] [address] [place] [address] XRay R eport Sig bear Patient: Elma Henry MR#: [id number] : 1935 Acct:[id number] Age/Sex: 83 / F ADM Date: 9 Loc: Attending Dr: Fernando Wallace MD Ordering Physician: Pola Yeung MD Date of Service: 07/12/19 Procedure(s): XR knee RT 4V Accession Number(s): [id number] cc: Bertin Ayers MD; Mary Villanueva MD~ PROCEDURE: XR KNEE RT 4V CLINICAL INDICATION: PAIN COMPARISON: CXR1 CHEST-PORTABLE from 02/20/2016 FINDINGS: Severe osteoarthritic changes are prese nt involving the lateral compartment with loss of joint space os teosclerosis and osteophyte formation with mild valgus angulation o f the tibia. Moderate osteoarthritic changes are present at t he patellofemoral joint with a small suprapatellar effusion. There ar e vascular calcifications. A small sclerotic focus is present in the left femoral condyle centrally nonspecific. No acute fractu re or dislocation. IMPRESSION: Severe osteoarthritis with small knee j oint effusion Dictated by: Bertin Ayers MD 07/12/2019 11:21 Electronically signed by Bertin Ayers in [place] 07/12/2019 11:21 Radiology Report July 12, 2019 Bertin Ayers MD completed 10:19am [facility] [address] [place] [facility] [address] [place] [address] XRay R eport Sig bear Patient: Elma Henry MR#: [id number] : 1935 Acct:[id number] Age/Sex: 83 / F ADM Date: 9 Loc: Attending Dr: Fernando Wallace MD Ordering Physician: Pola Yeung MD Date of Service: 07/12/19 Procedure(s): XR knee LT 4V Accession Number(s): [id number] cc: Bertin Ayers MD; Mary Villanueva MD~ PROCEDURE: XR KNEE LT 4V CLINICAL INDICATION: pain Knee pain COMPARISON: No exams were available fo r comparison FINDINGS: No fracture or dislocation. No lytic or blastic change. There is normal mineralization. Severe osteoarthritic changes are prese nt involving the medial lateral compartment with moderate osteo arthritis of the patellofemoral joint. There is mild la teral tibial subluxation. No fracture or dislocation. There is gene ralized vascular calcification. Other findings:None. IMPRESSION: Osteoarthritis. Dictated by: Bertin Ayers MD 07/12/2019 11:29 Electronically signed by Bertin Ayers in [place] 07/12/2019 11:29 Health Concerns Concerns UTI Advance Directives Advance Directive Response Recorded Date/Time Living Will No July 12, 2019 2 :44am Chief Complaint and Reason for Visit Chief Complaint UTI Reason for Visit Cellulitis of both lower ext remities Diabetes Knee pain, right Obesity (BMI 30.0-34.9) Osteoarthritis of left knee Osteoarthritis of right knee UTI (urinary tract infection ) Encounters Encounter Location(s) Arrival/Admit Date Discharge/Depart Date Provider(s) Admitted [facility] Physician July 12, 2019 [facility]-Second 2:11am MD Rodrigo Floor Registered [facility] Physician July 13, [facility]- 2018 2:56pm MD Rodrigo Recent Diagnosis Onset Date Cellulitis of both lower extremities Diabetes Knee pain, right Obesity (BMI 30.0-34.9) Osteoarthritis of left knee Osteoarthritis of right knee UTI (urinary tract infection) Assessments Follow up as ordered by primary care provider Functional Status Observation Response Date Recorded Oral Care Ability Independent July 12, 2019 2 :44am Bathing Ability Assistance x1 July 12, 2019 8 :00am Eating (Feeding) Ability Independent July 12 019 2:44am Toileting Ability Assistance X1 July 12, 2019 2 :44am Ambulation Ability Assistance x1 July 12, 2019 2 :44am Goals Goals may be documented in an alternate section. Immunizations Immunization Event Date Not Given Dose Economics Instructor Lot Vac cine Reason Number Number Informatio n Statement (VIS) Deta il Td, adsorbed October 08, 1996 Shingles April (Zoster) 2016 Mental Status Observation Response Date Recorded Comprehension Ability No Impairment July 13 11:00am Able to Read Yes July 12, 2019 2 :44am Able to Write Yes July 12, 2019 2 :44am Ability to Follow Directions Excellent July 2:44am Oral Expression Ability No Impairment July 12 2:44am Medical Equipment No Medical Equipment Information available Insurance Providers Guarantor Elma Henry Address [place] [address] Contact Info. Home Phone: Payer Policy Id Coverage Id Subscriber's Subscriber Id Effective E xpiration Name Date Date [employer] [id number] Medicare Self Pay Self N/A Plan of Treatment See care plan goals Future Tests Future scheduled test information is unavailable Pending Tests Pending diagnostic test information is unavailable Future Visits Future appointment information is unavailable Referrals to Other Providers Reason for Referral Start Provider Provider Contact Provider Address Referral Date Information Admission to [facility] July [address] [place] [address] Future Procedures Future procedure information is unavailable Future Medications Future medication information is unavailable Patient Instructions DI for Cellulitis -- Adult Urinary Tract Infection Cellulitis DI for Obesity -- Adult DI for Urinary Tract Infection (UTI) DI for Knee Pain Social History Observation Status Date of Observation Not July 11, 2019 Assigned Sex Female Vital Signs Vital Reading Result Reference Range Collection Date/ Time Height 163 cm July 13 5:55am Weight 85.02 kg July 13 5:55am Body Temperature 97.2 [degF] 97.6-99.6 July 13, 2019 12:00pm Heart Rate 67 /min 60-90 July 13 12:00pm Respiratory rate 18 /min 12-July 13, 2019 12:00pm Oxygen saturation by 97 % 95-100 July 132018 Pulse oximetry 12:00pm BP Systolic 173 mm[Hg] 110-140 July 13 12:00pm BP Diastolic 93 mm[Hg] 60-90 July 13 12:00pm BMI (Body Mass Index) 32.0 kg/m2 July 042018 5:55am
--- NOTE | 2019-07-13 17:49 | Electrocardiograph Report ---
APPROVED REPORT Exam: Resting ECG HR:73 bpm ECG Measurements Heart Rate 73 AXES DC 192 P 113 QRSd 68 QRS 22 QT 414 T82 QTc 456 <Conclusion> Normal sinus rhythm Poor R Wave Progression Abnormal ECG Electronically signed by : Avery Jones, 07/13/2019 17:48:22
== END 2019-07-13 14:00 | disposition home or self-care (01) ==
LOC: 2ND 21:17 → ER 21:17 → 2ND 07-12 02:11
PROVIDERS: ADMIT Emergency Medicine; ATTEND Emergency Medicine
CPT/HCPCS: 36415; 71010; 71045; 73564; 80048; 80053; 81001; 82962; 83605; 83735; 84484; 85025; 85651; 86140; 87040; 87086; 87088; 87186; 93005; 96374; 97161; 97165; 99284; G0378; J1335